=== PATIENT | female | born 1965 | race Caucasian/White ===

== ENCOUNTER → 2020-06-16 | Outpatient (CLI) | payer BC ==
[~2020-06-16] VITALS: Ht 162.6 cm; Wt 79.4 kg
[2020-06-16 23:46] LABS: microscopic required? NO
[2020-06-17 00:15] LABS: BASOPHIL % 0.7 % (0-2); PLATELET COUNT 400 x10^3mcL (130-400); RED CELL DISTRIBUTION WIDTH 14.5 % (11.5-14.5)
[2020-06-17 01:57] LABS: CALCIUM 9.2 mg/dL (8.5-10.1); CARBON DIOXIDE 28.9 mmol/L (21-32); CHLORIDE SERUM 101 mmol/L (98-107); CREATININE SERUM 0.7 mg/dL (0.6-1.0); GFR1 > 60 mL/min; GLUCOSE SERUM 107 mg/dL (74-106); POTASSIUM SERUM 3.7 mmol/L (3.5-5.1); SODIUM SERUM 138 mmol/L (136-145)
== END | disposition home or self-care (01) ==
LOC: LB 10:00 → DS 06-22 10:00 → EDSTATUS 06-22 10:01 → DS 06-22 21:51
PROVIDERS: ATTEND Urology
DX: N20.0 Calculus of kidney (principal)
CPT/HCPCS: U0003-CS